=== PATIENT | male | born 1935 | race Caucasian/White ===

== ENCOUNTER 2021-10-14 21:06 | Observation (INO) ==
[2021-10-14] MEDS ORDERED: LORazepam 2 MG/1 ML VIAL IV STA (21:51)
[2021-10-14 22:53] LABS: Basophils # (auto) 0.03 K/uL (0-0.2); Basophils % (auto) 0.4 %; Eosinophils # (auto) 0.14 K/uL (0-0.5); Eosinophils % (auto) 1.6 %; Hematocrit (blood only) 34.1 % (42-52); Hemoglobin 11.3 g/dL (14.0-18.0); Immature Granulocytes # (auto) 0.02 K/uL (0.00-0.02); Immature Granulocytes % (auto) 0.2 %; Lymphocytes # (auto) 1.32 K/uL (1.2-3.4); Lymphocytes % (auto) 15.5 %; Mean Corpuscular Hemoglobin 28.4 pg (25-34); Mean Corpuscular Hgb Conc 33.1 g/dL (32-36); Mean Corpuscular Volume 85.7 fL (80-100); Monocytes # (auto) 0.73 K/uL (0.11-0.59); Monocytes % (auto) 8.6 %; Neutrophils # (auto) 6.26 K/uL (1.4-6.5); Neutrophils % (auto) 73.7 %; Platelet Count 167 K/uL (130-400); RDW Coefficient of Variation 14.9 % (11.5-14.5); RDW Standard Deviation 46.7 fL (36.4-46.3); Red Blood Count 3.98 M/uL (4.7-6.1)
--- NOTE | 2021-10-14 23:37 | Emergency Department Note ---
History of Present Illness General Chief complaint: Hypertension Stated complaint: HYPERTENSIVE, SOB, DIZZINESS Time Seen by Provider: 10/14/21 21:29 History of Present Illness This 85-year-old presents to the ER complaining of elevated blood pressure and shortness of breath today who his friend just Location: Generalized Quality: Short of breath Severity: Mild Duration: Today Timing: Today Context: Patient was concerned and came in Modifying factors: better with nothing; worse with nothing Patient recently got over pneumonia. He normally goes to the DC. Patient denies chest pain, numbness, tingling, vision problems, balance problems, localized weakness. Home Medications Medication Instructions Recorded Confirmed Type ascorbic acid (vitamin C) 500 mg 500 mg PO DAILY 10/14/21 10/15/21 History tablet (Vitamin C) atorvastatin 20 mg tablet 10 mg PO DAILY 10/14/21 10/14/21 History biotin 1 mg tablet 1 mg PO DAILY 10/14/21 10/15/21 History diclofenac sodium 1 % topical gel 0 g TOPICAL TID PRN 10/14/21 10/14/21 History furosemide 20 mg tablet (Lasix) 20 mg PO DAILY PRN 10/14/21 10/14/21 History gabapentin 100 mg capsule 100 mg PO QAM 10/14/21 10/15/21 History gabapentin 100 mg tablet 200 mg PO HS 10/14/21 10/15/21 History insulin aspart U-100 100 unit/mL 5 unit SUBCUT AC 10/14/21 10/15/21 History (3 mL) subcutaneous pen (Novolog Flexpen U-100 Insulin aspart) insulin glargine 100 unit/mL (3 20 unit SUBCUT QPM 10/14/21 10/15/21 History mL) subcutaneous pen (Lantus Solostar U-100 Insulin) lidocaine 5 % topical patch 1 patch TOPICAL DAILY 10/14/21 10/15/21 History losartan 25 mg tablet 25 mg PO BID 10/14/21 10/15/21 History lutein 6 mg tablet 0 mg PO DAILY 10/14/21 10/15/21 History methyl salicylate-menthol topical 1 ea TOPICAL DAILY 10/14/21 10/15/21 History ointment mometasone 200 mcg/actuation HFA 2 puff INHALATION DAILY 10/14/21 10/15/21 H istory aerosol inhaler multivitamin 1 tab PO DAILY 10/14/21 10/15/21 History omega-3 fatty acids 1,000 mg PO DAILY 10/14/21 10/15/21 History quetiapine 25 mg tablet 25 mg PO HS 10/14/21 10/15/21 History Allergies Allergy/AdvReac Type Severity Reaction Status Date / Time No Known Allergies Allergy Unverified 10/15/21 00:14 Past Med/Surg History Medical History Diabetes High blood pressure Surgical History Hx of CABG Social History Smoking Status: Never smoker Preferred Language: Nauruan Feels Safe at Home: Yes Review of Systems A total of 10 systems reviewed and were otherwise negative Physical Exam Vital Signs Vital Signs - 24 hr 10/14/21 21:12 10/14/21 21:32 10/14/21 21:40 Temperature 37.1 C Temperature Source Temporal Artery Scan Pulse Rate 78 56 L 70 Pulse Rate from SpO2 Sensor Respiratory Rate 18 12 17 Respiratory Effort / Characteristics Non-Labored Spontaneous Respiratory Depth Normal Respiratory Pattern Regular Blood Pressure 204/82 H 186/91 H Blood Pressure Mean 122 122 Pulse Oximetry 96 96 96 Oxygen Delivery Method Room Air Sepsis Recent Fever Within 48 Hours No Sepsis New/Unexplained Change in Mental Status No Sepsis Action Taken by Nursing No Action Required 10/14/21 22:00 10/14/21 22:30 10/14/21 22:52 Temperature Temperature Source Pulse Rate 53 L 56 L Pulse Rate from SpO2 Sensor Respiratory Rate 12 22 Respiratory Effort / Characteristics Respiratory Depth Respiratory Pattern Blood Pressure 151/75 H Blood Pressure Mean 100 Pulse Oximetry 96 95 Oxygen Delivery Method Room Air Sepsis Recent Fever Within 48 Hours Sepsis New/Unexplained Change in Mental Status Sepsis Action Taken by Nursing 10/14/21 23:00 10/14/21 23:02 10/14/21 23:30 Temperature Temperature Source Pulse Rate 53 L 81 53 L Pulse Rate from SpO2 Sensor 70 Respiratory Rate 20 15 21 Respiratory Effort / Characteristics Respiratory Depth Respiratory Pattern Blood Pressure 176/89 H Blood Pressure Mean 118 Pulse Oximetry 96 96 Oxygen Delivery Method Sepsis Recent Fever Within 48 Hours Sepsis New/Unexplained Change in Mental Status Sepsis Action Taken by Nursing 10/15/21 00:00 10/15/21 00:30 10/15/21 01:30 Temperature Temperature Source Pulse Rate 56 L 58 L 62 Pulse Rate from SpO2 Sensor 70 80 Respiratory Rate 16 18 Respiratory Effort / Characteristics Respiratory Depth Respiratory Pattern Blood Pressure 188/65 H Blood Pressure Mean 106 Pulse Oximetry 94 95 94 Oxygen Delivery Method Sepsis Recent Fever Within 48 Hours Sepsis New/Unexplained Change in Mental Status Sepsis Action Taken by Nursing 10/15/21 01:52 10/15/21 02:00 Temperature Temperature Source Pulse Rate 63 58 L Pulse Rate from SpO2 Sensor Respiratory Rate 23 19 Respiratory Effort / Characteristics Respiratory Depth Respiratory Pattern Blood Pressure 198/78 H 197/77 H Blood Pressure Mean 118 117 Pulse Oximetry 97 96 Oxygen Delivery Method Sepsis Recent Fever Within 48 Hours Sepsis New/Unexplained Change in Mental Status Sepsis Action Taken by Nursing VITALS: Vitals are noted on the nurse's note and reviewed by myself. Vital s igns hypertensive. GENERAL: Elderly male moving all extremities with nephew present, in no acute distress, nondiaphoretic, well-developed well-nourished. SKIN: The skin was without rashes, erythema, edema, or bruising. There is no tenting of the skin. Capillary reflex less than 2 seconds. HEAD: Normocephalic atraumatic. EARS: External auditory canals clear, EYES: Pupils equal round and reactive to light and accommodation. Conjunctivae without injection, sclerae without icterus. Extraocular movements intact. NOSE: Patent, turbinates without inflammation or discharge. MOUTH: Mucous membranes moist. Pharynx without erythema or exudate. Uvula midline. Airway patent. Tongue does not deviate. NECK: Supple without nuchal rigidity. No lymphadenopathy. No thyromegaly. Cervical spine is nontender. No JVD. HEART: Regular rate and rhythm LUNGS: Clear to auscultation bilaterally without wheezes, rales or rhonchi. No retractions or accessory muscle use. ABDOMEN: Positive bowel sounds x 4. Normal tympanic percussion. Soft, nontender, without masses or organomegaly. Hector sign negative. No guarding or rebound tenderness. No CVA tenderness MUSCULOSKELETAL: No muscle atrophy, erythema, or edema noted. NEURO: Patient was alert and oriented to person place and time. Normal sensation to light and sharp touch. No focal neurological deficits. Course Administered Medications Discontinued Medications Ioversol (Optiray 320 125ml) 125 ml IV ONCE ONE Stop: 10/15/21 01:17 Last Admin: 10/15/21 01:17 Dose: 98 ml Documented by: [id number] Lorazepam (Lorazepam 2 Mg/1 Ml Vial) 0.5 mg IV NOW STA Stop: 10/14/21 21:52 Last Admin: 10/14/21 23:15 Dose: Not Given Documented by: [id number] Medical Decision Making Medical Records Attestation: I reviewed the patient's medical records. Home Medications Current Medication List: was personally reviewed by me Laboratory Data Attestation: I reviewed the patient's lab results. Result diagrams: 10/14/21 22:37 10/14/21 22:37 Lab Results 10/14/21 10/14/21 10/14/21 Range/Units 22:37 22:37 22:37 WBC 8.50 (4.8-10.8) K/uL RBC 3.98 L (4.7-6.1) M/uL Hgb 11.3 L (14.0-18.0) g/dL Hct 34.1 L (42-52) % MCV 85.7 (80-100) fL MCH 28.4 (25-34) pg MCHC 33.1 (32-36) g/dL RDW Std Deviation 46.7 H (36.4-46.3) fL RDW Coeff of Greer 14.9 H (11.5-14.5) % Plt Count 167 (130-400) K/uL MPV 12.0 H (7.4-10.4) fL Immature Gran % (Auto) 0.2 % Neut % (Auto) 73.7 % Lymph % (Auto) 15.5 % Glenn % (Auto) 8.6 % Eos % (Auto) 1.6 % Baso % (Auto) 0.4 % Neut # (Auto) 6.26 (1.4-6.5) K/uL Lymph # (Auto) 1.32 (1.2-3.4) K/uL Glenn # (Auto) 0.73 H (0.11-0.59) K/uL Eos # (Auto) 0.14 (0-0.5) K/uL Baso # (Auto) 0.03 (0-0.2) K/uL Immature Gran # (Auto) 0.02 (0.00-0.02) K/uL Sodium 139 (136-145) mmol/L Potassium 3.9 (3.5-5.1) mmol/L Chloride 105 (98-107) mmol/L Carbon Dioxide 25 (21-32) mmol/L Anion Gap 9 (3-11) BUN 28 H (6-23) mg/dl Creatinine 1.14 (0.6-1.4) mg/dl Est Cr Clr Drug Dosing 54.3 ml/min Est GFR ( Amer) 66.6 ml/min Est GFR (Non-Af Amer) 57.5 ml/min BUN/Creatinine Ratio 24.6 H (10-20) Glucose 78 (70-99(Fasting)) mg/dl Calcium 8.9 (8.5-10.1) mg/dl Magnesium 2.2 (1.7-2.4) mg/dl Total Bilirubin 0.7 (0.2-1.0) mg/dl AST 15 (13-39) U/L ALT 9 (7-52) U/L Alkaline Phosphatase 71 (34-104) U/L Troponin I High Sens 33.6 H (0-20) pg/ml Total Protein 6.9 (6.0-8.3) gm/dl Albumin 3.9 (3.4-5.0) gm/dl Globulin 3.0 (2.5-4.0) gm/dl Albumin/Globulin Ratio 1.3 (0.9-2) Lipase 50 (11-82) U/L TSH 1.822 (0.300-4.500) uIu/ml 10/14/21 10/15/21 Range/Units 22:37 00:31 WBC (4.8-10.8) K/uL RBC (4.7-6.1) M/uL Hgb (14.0-18.0) g/dL Hct (42-52) % MCV (80-100) fL MCH (25-34) pg MCHC (32-36) g/dL RDW Std Deviation (36.4-46.3) fL RDW Coeff of Greer (11.5-14.5) % Plt Count (130-400) K/uL MPV (7.4-10.4) fL Immature Gran % (Auto) % Neut % (Auto) % Lymph % (Auto) % Glenn % (Auto) % Eos % (Auto) % Baso % (Auto) % Neut # (Auto) (1.4-6.5) K/uL Lymph # (Auto) (1.2-3.4) K/uL Glenn # (Auto) (0.11-0.59) K/uL Eos # (Auto) (0-0.5) K/uL Baso # (Auto) (0-0.2) K/uL Immature Gran # (Auto) (0.00-0.02) K/uL Sodium (136-145) mmol/L Potassium (3.5-5.1) mmol/L Chloride (98-107) mmol/L Carbon Dioxide (21-32) mmol/L Anion Gap (3-11) BUN (6-23) mg/dl Creatinine (0.6-1.4) mg/dl Est Cr Clr Drug Dosing ml/min Est GFR ( Amer) ml/min Est GFR (Non-Af Amer) ml/min BUN/Creatinine Ratio (10-20) Glucose (70-99(Fasting)) mg/dl Calcium (8.5-10.1) mg/dl Magnesium (1.7-2.4) mg/dl Total Bilirubin (0.2-1.0) mg/dl AST (13-39) U/L ALT (7-52) U/L Alkaline Phosphatase (34-104) U/L Troponin I High Sens 36.8 H 40.0 H (0-20) pg/ml Total Protein (6.0-8.3) gm/dl Albumin (3.4-5.0) gm/dl Globulin (2.5-4.0) gm/dl Albumin/Globulin Ratio (0.9-2) Lipase (11-82) U/L TSH (0.300-4.500) uIu/ml Imaging Data Attestation: I personally reviewed and interpreted this imaging study as follows: MDM Narrative Prior records/ancillary studies reviewed regarding the history above. Triage Nursing notes reviewed. Additional history obtained from the family. The patient's history was concerning for hypertension. Differential diagnosis: Etiologies such as benign hypertension, hypertensive emergency, cardiovascular pathology, pheochromocytoma, electrolyte abnormality, renal disease, endorgan damage, as well as others were entertained. Physical examination: As above. No signs of end organ damage. ER treatment provided: An order was placed for continuous cardiac monitoring. The monitor shows a rate of 50-100 with a sinus rhythm. Ativan On reassessment the patient felt better. Diagnostic interpretation by me: The electrocardiogram was ordered for dyspnea EKG: Normal sinus, normal intervals, no acute ST-T wave changes. Rate of 66. I mpression normal sinus rhythm septal infarct interpreted by myself I think arrhythmia is unlikely. EKG shows normal sinus rhythm with no interval abnormalities such as QT prolongation or WPW. There are no findings to suggest Brugada syndrome. Cardiac monitoring in the emergency department reveals no tachycardic or bradycardic dysrhythmia. Hypertrophic cardiomyopathy was considered but there are no clear historical elements pointing toward this. EKG is not suggestive. The QRS voltage is not extremely large and there are no suggestive Q waves. The labs revealed elevated troponin and repeat is higher Imaging studies: Preliminary Findings Only See Final Report For Complete Findings CTA CHEST: No prior exam for comparison. No pulmonary embolus or aortic dissection. Atherosclerotic disease of aorta with no aneurysm. Normal cardiac size with coronary artery calcifications. Midline sternotomy wires. Mild bilateral pleural effusions. Multifocal subpleural interstitial thickening with minimal cystic changes more so in the lung apices suggestive of chronic interstitial lung disease versus early/mild pulmonary fibrosis. Mild fullness of the lymph nodes within the mediastinum, largest at the aortopulmonary window measuring 1.6 x 1.5 cm and largest in the right paratracheal region measuring 2.0 x 1.5 cm. Left lower lobe subpleural pulmonary nodule measuring approximately 1.6 cm. This has a small punctate calcification which favors benign process however calcific metastatic disease cannot be entirely excluded. Mild posterior dependent atelectasis. Visualized upper abdominal structures are unremarkable. Radiologist: Denise Chaidez MD HEART SCORE: Hx: high/mod/low suspicion: 0 ECG: ST depression/nonspecific changes/normal: 1 Age: Greater than 65/45-64/less than 45: 2 Risk factors: (Hypertension, hyperlipidemia, diabetes, coronary disease, tobacco use, cocaine use): 2 Troponin: Greater than 2 times normal limits/1-2 times normal limits/normal: 1 Total: 6 Consultation: A consultation was placed with the hospitalist. The case was discussed and diagnostics were reviewed. The patient was evaluated in the ER for further treatment. This appears to be consistent with dyspnea, elevated troponin and hypertension. CTA was reviewed. No PE. Repeat troponin is higher. Medicine is consulted. He will be evaluated for cardiac rule out. By the evaluation outlined above emergent etiologies such as hypertensive emergency, pheochromocytoma, endorgan damage, aortic dissection, pulmonary embolism, pneumonia, pneumothorax, infections, gastrointestinal, as well as others were deemed relatively unlikely. The pt informed about the findings as listed above. All questions were answered and pleased with the treatment. The chart was completed utilizing [employer] Speech voice recognition software. Grammatical errors, random word insertions, pronoun errors, and incomplete sentences are an occassional consequence of this system due to software limitations, ambient noise, and hardware issues. Any formal questions or concerns about the content, text, or information contained within the body of this dictation should be directly addressed to the physician student assistant for clarification. Impression & Plan Hypertension, Elevated troponin, Acute dyspnea Discharge Plan Visit Data Chief Complaint: Hypertension Stated Complaint: HYPERTENSIVE, SOB, DIZZINESS ED Provider: Lukas Doe ED Midlevel Provider: Ame Alicia Discharge Problem: Hypertension, Elevated troponin, Acute dyspnea Patient Disposition: Admitted As Inpatient Condition: Good Forms Stand Alone Forms: [facility] Prescriptions Prescriptions: No Action multivitamin Tablet 1 tab PO DAILY RF: 0 quetiapine 25 mg Tablet 25 mg PO HS RF: 0 atorvastatin 20 mg Tablet 10 mg PO DAILY RF: 0 ascorbic acid (vitamin C) [Vitamin C] 500 mg Tablet 500 mg PO DAILY RF: 0 lidocaine 5 % Adhesive Patch,Medicated 1 patch TOPICAL DAILY RF: 0 losartan 25 mg Tablet 25 mg PO BID RF: 0 furosemide [Lasix] 20 mg Tablet 20 mg PO DAILY PRN (Reason: Edema) RF: 0 gabapentin 100 mg Capsule 100 mg PO QAM RF: 0 BenGay Ointment 1 ea TOPICAL DAILY RF: 0 insulin aspart U-100 [Novolog Flexpen U-100 Insulin] 100 unit/mL (3 mL) Insulin Pen 5 unit SUBCUT AC RF: 0 Fish Oil Capsule 1,000 mg PO DAILY RF: 0 gabapentin 100 mg Tablet 200 mg PO HS RF: 0 biotin 1 mg Tablet 1 mg PO DAILY RF: 0 Lantus Solostar U-100 Insulin 100 unit/mL (3 mL) Insulin Pen 20 unit SUBCUT QPM RF: 0 diclofenac sodium [Voltaren] 1 % Gel 0 g TOPICAL TID PRN (Reason: Pain) RF: 0 lutein 6 mg Tablet 0 mg PO DAILY RF: 0 mometasone 200 mcg/actuation Hfa Aerosol Inhaler 2 puff INHALATION DAILY RF: 0 Referrals Referrals: PCP,NO [Primary Care Provider] - Discharge Problem: Hypertension Qualifiers: Hypertension type: unspecified Qualified Code(s): I10 - Essential (primary) hypertension
[2021-10-14 23:47] LABS: Albumin Globulin Ratio 1.3 (0.9-2); Albumin Level 3.9 gm/dl (3.4-5.0); BUN Creatinine Ratio 24.6 (10-20); Bilirubin,Total 0.7 mg/dl (0.2-1.0); Calcium 8.9 mg/dl (8.5-10.1); Creatinine Clr Calc Pharmacy 54.3 ml/min; Est GFR (African American) 66.6 ml/min; Est GFR (Non-African American) 57.5 ml/min; Magnesium 2.2 mg/dl (1.7-2.4); Potassium 3.9 mmol/L (3.5-5.1); Total Protein 6.9 gm/dl (6.0-8.3)
[2021-10-15 00:18] LABS: Troponin I High Sensitivity 33.6 pg/ml (0-20)
[2021-10-15] MEDS ORDERED: OPTIRAY 320 125ml IV ONE (01:16)
--- NOTE | 2021-10-15 01:56 | Emergency Department Note ---
ED Visit Note Patient was seen and evaluated at the bedside w/ Thu Alicia PA-C. Please see their note for history, physical, details, and disposition. Patient was seen due to concern for high blood pressure. Patient did have mildly elevated high-sensitivity troponin. Patient does not have any acute chest pain at this time. Patient was admitted to the medicine service. .
--- NOTE | 2021-10-15 02:50 | History & Physical Report ---
Date of Service October 15, 2021 Assessment & Plan (1) Elevated troponin: Plan: Elevated troponin/CAD/hypertension- The patient will be admitted to telemetry for serial cardiac enzymes, serial EKG's, cardiac rhythm monitoring and a 2-D echocardiogram with Dopplers. Troponin increasing from 36.8 up to 40.0 Continue losartan 25 mg p.o. twice daily Heart rate is 58-low 60s, therefore would not tolerate beta-mona Hydralazine 10 mg IV every 4 hours as needed systolic blood pressure greater than 160 (2) CAD (coronary artery disease), [place] coronary artery: Plan: See above (3) Hypertension: Plan: See above (4) History of recent pneumonia: Plan: Completed antibiotic course of treatment from [facility] (5) Pleural effusion, bilateral: Plan: Bilateral pleural effusions/lower extremity edema- He has history of intermittently taking Lasix 20 mg daily as needed We will place him on 40 mg Lasix orally daily and follow examination (6) Lower extremity edema: Plan: See above (7) Diabetes: Plan: Reduce Lantus from 20 to 10 units subcu in the evening. Hold 5 units subcu of NovoLog AC Place on Accu-Cheks before meals and at bedtime with NovoLog coverage per scale Check hemoglobin A1c (8) Pulmonary nodules/lesions, multiple: Plan: Follow-up in outpatient setting per protocol (9) COPD (chronic obstructive pulmonary disease): Plan: COPD/acute dyspnea- Patient reports having used nebulizers while in [place] At least part of this is likely post inflammatory with due to recent pneumonia Duonebs every 4 hours while awake and every 2 hours when necessary. (10) Acute dyspnea: Plan: See above (11) Hyperlipidemia LDL goal <70: Plan: Continue atorvastatin 10 mg daily Check a fasting lipid panel (12) Insomnia: Plan: Continue Seroquel 25 mg at bedtime History of Present Illness Chief Complaint: The patient presents to the emergency department with shortness of breath, chronic increased productive cough, and elevated blood pressure after hearing that a friend of his just . Primary Care Provider: NO PCP The patient is a an 85-year-old male with a past medical history including hypertension, CAD, status post CABG x3, anxiety, and diabetes mellitus. He had previously been from [place], and moved to the area 1 month ago to be with his nephew locally. He was treated for a recent pneumonia at [facility], and was told at his follow-up week ago that his chest x-ray was clear, however, he continues to have an intermittent productive cough. He reports hearing that his friend is a dive today, and he reports his blood pressure became elevated, and with the presence of shortness of breath associated with the cough, he presents to the ED for assessment. Significant laboratories: Troponin 36.8 the increased 40.0, hemoglobin 11.3, hematocrit 34.1. CT angiography of chest is negative for PE, but does show mild bilateral pleural effusions, lymphadenopathy and pulmonary nodules. Allergies Allergy/AdvReac Type Severity Reaction Status Date / Time No Known Allergies Allergy Unverified 10/15/21 00:14 Home Medications Medication Instructions Recorded Confirmed Type ascorbic acid (vitamin C) 500 mg 500 mg PO DAILY 10/14/21 10/15/21 History tablet (Vitamin C) atorvastatin 20 mg tablet 10 mg PO DAILY 10/14/21 10/14/21 History biotin 1 mg tablet 1 mg PO DAILY 10/14/21 10/15/21 History diclofenac sodium 1 % topical gel 0 g TOPICAL TID PRN 10/14/21 10/14/21 History furosemide 20 mg tablet (Lasix) 20 mg PO DAILY PRN 10/14/21 10/14/21 History gabapentin 100 mg capsule 100 mg PO QAM 10/14/21 10/15/21 History gabapentin 100 mg tablet 200 mg PO HS 10/14/21 10/15/21 History insulin aspart U-100 100 unit/mL 5 unit SUBCUT AC 10/14/21 10/15/21 History (3 mL) subcutaneous pen (Novolog Flexpen U-100 Insulin aspart) insulin glargine 100 unit/mL (3 20 unit SUBCUT QPM 10/14/21 10/15/21 History mL) subcutaneous pen (Lantus Solostar U-100 Insulin) lidocaine 5 % topical patch 1 patch TOPICAL DAILY 10/14/21 10/15/21 History losartan 25 mg tablet 25 mg PO BID 10/14/21 10/15/21 History lutein 6 mg tablet 0 mg PO DAILY 10/14/21 10/15/21 History methyl salicylate-menthol topical 1 ea TOPICAL DAILY 10/14/21 10/15/21 History ointment mometasone 200 mcg/actuation HFA 2 puff INHALATION DAILY 10/14/21 10/15/21 History aerosol inhaler multivitamin 1 tab PO DAILY 10/14/21 10/15/21 History omega-3 fatty acids 1,000 mg PO DAILY 10/14/21 10/15/21 History quetiapine 25 mg tablet 25 mg PO HS 10/14/21 10/15/21 History Past Med/Surg History Medical History (Updated 10/15/21 @ 04:36 by Moe Warner MD) CAD (coronary artery disease), [place] coronary artery COPD (chronic obstructive pulmonary disease) Diabetes High blood pressure History of recent pneumonia Hyperlipidemia LDL goal <70 Insomnia Lower extremity edema Surgical History Hx of CABG Social History Smoking Status: Never smoker Preferred Language: Sinhala Feels Safe at Home: Yes Review of Systems Review of Systems: The patient denies chest pain, palpitations, lower extremity swelling, sore throat, fevers, chills, sweats, nausea, vomiting, diarrhea , constipation, abdominal pain, pelvic pain, blood in urine or stool, dysuria, urinary frequency or urgency, lightheadedness, dizziness, headache, memory loss, loss of consciousness, rash, abnormal bruising or bleeding, imbalance, focal or generalized weakness, numbness or tingling in arms or legs, generalized arthralgias or myalgias, back or neck pain, or night sweats. The review of systems is otherwise negative other than for that already noted above, and at least 10 systems have been reviewed. Physical Exam Physical Exam: The patient is awake, alert and oriented 3, well developed and well nourished, normocephalic and atraumatic, sitting upright in bed, with intermittent cough, and otherwise in no acute distress. HEENT--PERRL, EOMI, mucous membranes and oropharynx normal. Neck--supple. No JVD. No bruits. Thyroid normal, trachea midline, no adenopathy. Heart--normal S1 and S2. No murmurs, rubs or gallops. Lungs--diffuse wheezes bilaterally. No respiratory distress, no accessory muscle use. Abdomen--normal bowel sounds and soft. Nontender. Nondistended. Obese. Extremities--no cyanosis or clubbing. Right with 1+ pretibial pitting edema. Left with trace pretibial pitting edema Dermatologic--normal skin turgor, normal color, no abnormal lymph nodes, no rash. Neurologic--cranial nerves II through XII grossly intact. Rheumatologic--normal range of motion. Psychiatric--normal affect. Results & Data Results & Data ([facility]) Vital Signs (Past 12 Hours) Vital Signs Temp Pulse Resp BP Pulse Ox 10/15/21 02:00 58 L 19 197/77 H 96 10/15/21 01:52 63 23 198/78 H 97 10/15/21 01:30 62 94 10/15/21 00:30 58 L 18 95 10/15/21 00:00 56 L 16 188/65 H 94 10/14/21 23:30 53 L 21 96 10/14/21 23:02 81 15 176/89 H 10/14/21 23:00 53 L 20 96 10/14/21 22:30 56 L 22 95 10/14/21 22:00 53 L 12 151/75 H 96 10/14/21 21:40 70 17 186/91 H 96 10/14/21 21:32 56 L 12 96 10/14/21 21:12 37.1 C 78 18 204/82 H 96 Laboratory Results Laboratory Results WBC 8.50 K/uL (4.8-10.8) 10/14/21 22:37 RBC 3.98 M/uL (4.7-6.1) L 10/14/21 22:37 Hgb 11.3 g/dL (14.0-18.0) L 10/14/21 22:37 Hct 34.1 % (42-52) L 10/14/21 22:37 MCV 85.7 fL (80-100) 10/14/21 22:37 MCH 28.4 pg (25-34) 10/14/21 22:37 MCHC 33.1 g/dL (32-36) 10/14/21 22:37 RDW Std Deviation 46.7 fL (36.4-46.3) H 10/14/21 22:37 RDW Coeff of Greer 14.9 % (11.5-14.5) H 10/14/21 22:37 Plt Count 167 K/uL (130-400) 10/14/21 22:37 MPV 12.0 fL (7.4-10.4) H 10/14/21 22:37 Immature Gran % (Auto) 0.2 % 10/14/21 22:37 Neut % (Auto) 73.7 % 10/14/21 22:37 Lymph % (Auto) 15.5 % 10/14/21 22:37 [place] % (Auto) 8.6 % 10/14/21 22:37 Eos % (Auto) 1.6 % 10/14/21:37 Baso % (Auto) 0.4 % 10/14/21:37 Neut # (Auto) 6.26 K/uL (1.4-6.5) 10/14/21: Lymph # (Auto) 1.32 K/uL (1.2-3.4) 10/14/21 22:37 [place] # (Auto) 0.73 K/uL (0.11-0.59) H 10/14/21 22:37 Eos # (Auto) 0.14 K/uL (0-0.5) 10/14/21 22:37 Baso # (Auto) 0.03 K/uL (0-0.2) 10/14/21 22:37 Immature Gran # (Auto) 0.02 K/uL (0.00-0.02) 10/14/21 22:37 Sodium 139 mmol/L (136-145) 10/14/21 22:37 Potassium 3.9 mmol/L (3.5-5.1) 10/14/21 22:37 Chloride 105 mmol/L (98-107) 10/14/21 22:37 Carbon Dioxide 25 mmol/L (21-32) 10/14/21 22:37 Anion Gap 9 (3-11) 10/14/21 22:37 BUN 28 mg/dl (6-23) H 10/14/21 22:37 Creatinine 1.14 mg/dl (0.6-1.4) 10/14/21 22:37 Est Cr Clr Drug Dosing 54.3 ml/min 10/14/21 22:37 Est GFR ( Amer) 66.6 ml/min 10/14/21 22:37 Est GFR (Non-Af Amer) 57.5 ml/min 10/14/21 22:37 BUN/Creatinine Ratio 24.6 (10-20) H 10/14/21 22:37 Glucose 78 mg/dl (70-99(Fasting)) 10/14/21 22:37 Calcium 8.9 mg/dl (8.5-10.1) 10/14/21 22:37 Magnesium 2.2 mg/dl (1.7-2.4) 10/14/21 22:37 Total Bilirubin 0.7 mg/dl (0.2-1.0) 10/14/21 22:37 AST 15 U/L (13-39) 10/14/21 22:37 ALT 9 U/L (7-52) 10/14/21 22:37 Alkaline Phosphatase 71 U/L (34-104) 10/14/21 22:37 Troponin I High Sens 40.0 pg/ml (0-20) H 10/15/21 00:31 Total Protein 6.9 gm/dl (6.0-8.3) 10/14/21 22:37 Albumin 3.9 gm/dl (3.4-5.0) 10/14/21 22:37 Globulin 3.0 gm/dl (2.5-4.0) 10/14/21 22:37 Albumin/Globulin Ratio 1.3 (0.9-2) 10/14/21 22:37 Lipase 50 U/L (11-82) 10/14/21 22:37 TSH 1.822 uIu/ml (0.300-4.500) 10/14/21 22:37 SARS-CoV-2, RNA, NAAT NEGATIVE (NEGATIVE) 10/15/21 Unknown Diagnostic Findings [facility] Patient: MEL ROGER (Male) : [birth year] Status: ER Date: 10/15/21 01:23 Room #: History: HYPERTENSION, NO CHEST PAIN R/O PE Slices: 750 Priors: Tech: Stewart Pennington @ [phone] Exams: CTA CHEST Contrast: IV Amt: 98 ML OPTIRAY 320 Accession Numbers: [id number] Referring Physician: REFERRED SELF Preliminary Findings Only See Final Report For Complete Findings CTA CHEST: No prior exam for comparison. No pulmonary embolus or aortic dissection. Atherosclerotic disease of aorta with no aneurysm. Normal cardiac size with coronary artery calcifications. Midline sternotomy wires. Mild bilateral pleural effusions. Multifocal subpleural interstitial thickening with minimal cystic changes more so in the lung apices suggestive of chronic interstitial lung disease versus early/mild pulmonary fibrosis. Mild fullness of the lymph nodes within the mediastinum, largest at the aortopulmonary window measuring 1.6 x 1.5 cm and largest in the right paratracheal region measuring 2.0 x 1.5 cm. Left lower lobe subpleural pulmonary nodule measuring approximately 1.6 cm. This has a small punctate calcification which favors benign process however calcific metastatic disease cannot be entirely excluded. Mild posterior dependent atelectasis. Visualized upper abdominal structures are unremarkable. Radiologist: Denise Chaidez MD Study ready at 01:27 and initial results transmitted at 02:16 *This report constitutes a preliminary interpretation only. Non-acute findings felt to be unrelated to the clinical presentation may not be discussed in this report. The study will be interpreted and a final report will be generated by the local Radiologist the following shift. To reach the [facility] radiology department call [phone]. If a discrepancy is found between the preliminary and final interpretations of this study, please notify us via our Client Portal at [email or web address], under QA Exams. You can also fax this report with a description of the discrepancy, or include the final report, to our daytime fax number [phone]. If faxing, please indicate the severity of discrepancy using one of the following categories: [ ] 1 - Agree/Informational [ ] 2 - Unlikely to Affect Management [ ] 3 - Possible Eventual Change of Management [ ] 4 - Probable Immediate Change of Management For all other patient related information, please fax us at [phone]. [id number] Code Status & VTE Plan Code Status Full code VTE Prophylaxis Plan VTE Prophylaxis will be ordered: Yes PG Care Time/CCT Total # of Minutes Spent Total Time Spent with Patient: Total time spent is greater than 50% in coordination of care (as documented) at patient's floor/unit and/or counseling patient: Coding Level of Care Code INT OBSERVATION CARE 70M LVL 3 Diagnoses Pulmonary nodules/lesions, multiple R91.8 Hypertension I10 Hypertension type: unspecified CAD (coronary artery disease), [place] coronary artery I25.10 History of recent pneumonia Z87.01 Elevated troponin R77.8 Pleural effusion, bilateral J90 Hyperlipidemia LDL goal <70 E78.5 Diabetes E11.9 Insomnia G47.00 Lower extremity edema R60.0 COPD (chronic obstructive pulmonary disease) J44.9 Acute dyspnea R06.00 (1) Hypertension Hypertension type: unspecified Qualified Code(s): I10 - Essential (primary) hypertension
[2021-10-15] MEDS ORDERED: hydrALAZINE HCL 20 MG/ML VIAL IV PRN (04:35)
[2021-10-15] MEDS ORDERED: ACETAMINOPHEN 325 MG TAB PO PRN (05:15)
[2021-10-15] MEDS ORDERED: GLUCOSE 10 TABS/TUBE PO PRN (05:15)
[2021-10-15] MEDS ORDERED: GLUCAGON FOR INJ 1 MG VIAL SQ PRN (05:15)
[2021-10-15] MEDS ORDERED: DEXTROSE 50% 50 ML SYRINGE IV PRN (05:15)
[2021-10-15] MEDS ORDERED: NITROGLYCERIN SL 0.4 MG/TAB TAB SL PRN (05:15)
[2021-10-15] MEDS ORDERED: GLUCOSE 40% GEL 15 GM TUBE PO PRN (05:15)
[2021-10-15] MEDS ORDERED: ONDANSETRON INJ 2 MG/ML 2 ML VIAL IV PRN (05:15)
[2021-10-15] MEDS ORDERED: CARBOHYDRATES FOR HYPOGLYCEMIA PO PRN (05:15)
[2021-10-15] MEDS ORDERED: amLODIPine BESYLATE 5 MG TAB PO ONE (07:00)
[2021-10-15] MEDS: ALBUT/IPRATROP 3MG/0.5MG NEB 3 ML VIAL NEB SCH ×3 (07:49→15:04)
[2021-10-15] MEDS: INSULIN ASPART PER UNIT SC SCH ×2 (08:13→12:05)
--- NOTE | 2021-10-15 08:38 | CT Scan Report ---
CT angio chest PE protocol CT DOSE: 743.16 mGy.cm HISTORY: 85 years-old Male with Chest Pain, eval for PE. Acute atypical chest pain with shortness o f breath and hypertension TECHNIQUE: Multiple CTA images of the chest were obtained after the intravenous administration of 98 ml Optiray. Coronal and sagittal MIPS were obtained from the axial data set and were submitted for [facility]. All measurements were obtained according to NASCET criteria. A dose lowering technique was ut ilized adhering to the principles of ALARA. COMPARISON: None. FINDINGS: CTA: Mild cardiomegaly. No pericardial effusion. Prior median sternotomy. Extensive [place] coronary artery calcifications. Atherosclerosis of the thoracic aorta without aneurysm or dissection. Patency of the imaged great vessels. The segmental and subsegmental pulmonary arterial branches within the lung bas es are not well opacified and therefore difficult to evaluate. No pulmonary emboli are identified. CT CHEST: Multiple thyroid. Mildly enlarged mediastinal lymph nodes include paratracheal lymph nodes measuring up to 1.4 cm and subcarinal lymph nodes also measuring up to 1.4 cm. Hilar lymph nodes measure within the upper limits of normal in size. Small pleural effusions. No pneumothorax. Mild intralobular septal and bronchial wall thickening. Sub segmental bibasilar groundglass densities, right greater than left. Mild pulmonary emphysema. 4 mm horton bpleural solid nodule of the lateral segment right middle lobe. There is a lobular 1.7 x 1.5 cm solid nodule of the basal left lower lobe on image 41 containing macroscopic fat and a coarse calcificatio n. No acute process of the imaged upper abdomen. Gynecomastia. Degenerative changes of the shoulders and spine. Lower thoracic kyphoplasty. Bridging multilevel osteophytosis. IMPRESSION: 1. Cardiomegaly with mild pulmonary edema and small pleural effusions. 2. No pulmonary emboli. 3. Mild asymmetric patchy opacities of the basal right lower lobe are suspicious for an infectious or inflammatory pneumonitis. 4. 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 5. 4 mm low suspicion subpleural solid nodule of the right middle lobe. Please refer to below summary of Fleischner criteria recommendations for follow-up of incidental CT n odules (Tracie Shanks, Guidelines for management of small pulmonary nodules detected on CT scans: A sta tement from the Fleischner Society, Radiology 237: [phone].) SOLID NODULES Solitary nodule size: <6 mm * Low risk patients: no follow-up needed * high risk patients: optional CT at 12 months Solitary nodule size: 6-8 mm * Low risk patients: follow-up at 6-12 months, then consider further follow-up at 18-24 months * high risk patients: initial follow-up CT at 6-12 months and then at 18-24 months if no change Solitary nodule size: >8 mm * either low or high risk patients - consider follow-up CT at 3 months, and/or CT-PET, and/or biopsy Multiple nodules size: <6 mm * Low risk patients: no routine follow-up * high risk patients: optional CT at 12 months Multiple nodules size: 6-8 mm * Low risk patients: follow-up at 3-6 months, then consider further follow-up at 18-24 months * high risk patients: follow-up at 3-6 months, then at 18-24 months if no change Multiple nodules size: >8 mm * Low risk patients: follow-up at 3-6 months, then consider further follow-up at 18-24 months * high risk patients: follow-up at 3-6 months, then at 18-24 months if no change Note: newly detected indeterminate nodule in persons 35 years of age or older. * Low risk patients: minimal or absent history of smoking and/or other known risk factors * high risk patients: history of smoking or of other known risk factors (e.g. first degree relative with lung cancer, or exposure to asbestos, radon, uranium) * if a nodule up to 8 mm is partly solid or is ground glass further follow-up is required after 24 m onths to exclude possible slow growing adenocarcinoma (KAREN) ACT 112: Negative or not required by law. The above report was generated using voice recognition software. It may contain grammatical, syntax o r spelling errors. Electronically signed by: Shilo Sanchez M.D. 10/15/2021 8:36 AM
[2021-10-15] MEDS ORDERED: ASCORBIC ACID 500 MG TAB PO SCH (09:00)
[2021-10-15] MEDS ORDERED: OMEGA-3 (PURIFIED FISH OIL) 1 GM CAP PO SCH (09:00)
[2021-10-15] MEDS ORDERED: MULTIVITAMIN TAB PO SCH (09:00)
[2021-10-15] MEDS ORDERED: NON-FORMULARY MEDICATION (Biotin 1 mg Tablet) PO SCH (09:00)
[2021-10-15] MEDS ORDERED: ATORVASTATIN 10 MG TAB PO SCH (09:00)
[2021-10-15] MEDS ORDERED: FLUTICASONE FUROATE 200MCG 14 PUFFS/INHALER INH SCH (09:00)
[2021-10-15] MEDS ORDERED: FUROSEMIDE 40 MG TAB PO SCH (09:00)
[2021-10-15] MEDS ORDERED: GABAPENTIN 100 MG CAP PO SCH ×2 (09:00→21:00)
[2021-10-15] MEDS ORDERED: LOSARTAN POTASSIUM 25 MG TAB PO SCH (09:00)
--- NOTE | 2021-10-15 09:19 | Cardiology Consultation ---
Date of Consultation October 15, 2021 Assessment & Plan (1) CAD (coronary artery disease), [place] coronary artery: (2) Hypertension: (3) Hyperlipidemia LDL goal <70: (4) Abnormal ECG: ASSESSMENT/PLAN: 1. Elevated troponin: His high sensitivity troponin is mildly elevated without significant change. No acute ischemic changes on ECG. Presentation does not appear consistent with an ACS. 2. Shortness of breath: Likely multifactorial. He does have underlying lung disease and was recently diagnosed with pneumonia. He does not appear significantly hypervolemic on exam but chest CT did show mild pulmonary edema and small pleural effusions. PO diuretic therapy has already been increased by the admitting attending. His presentation is not consistent with an ACS, as noted above. ECG and telemetry monitoring have shown what appears to be a prolonged first degree AV block with a Wenckebach vs an accelerated junctional rhythm. Recommend having patient ambulate the hallways to ensure his heart rate increases appropriately. 3. Abnormal ECG: Recommend patient ambulate the hallways while monitoring on telemetry. If his rate does not increase appropriately, he could have more significant underlying conduction disease requiring a pacemaker. Avoid AV chio blocking agents. 4. Coronary artery disease s/p CABG and PCI: No angina. Recommend aspirin 81 mg daily if there are no contraindications. Recommend high intensity statin therapy. No beta mona therapy given evidence of conduction system disease. 5. Hypertension: BP has remained elevated while hospitalized. Recommend increasing antihypertensive therapy. 6. Dyslipidemia: Recommend high intensity statin therapy given his known CAD. Supervising Physician Co-Signing Physician Notes Agree with Ms. Sonja Collins with additional comments: Patient was seen and examined. He has chronic shortness of breath including orthopnea for years. He has been using a nebulizer which improved his shortness of breath but his CT chewed on the tubing and therefore since he moved here several months ago, he has been unable to use his nebulizer. Here, he has been treated with nebulizer treatments and states that he feels much better with each treatment. He no longer is feeling short of breath. He denies chest pain, syncope, near-syncope. He has chronic right lower extremity edema for which he takes diuretic with improvement. He has not noted swelling in his left lower extremity. He was a [employer] Exam notable for: General: No acute distress Neck: No appreciable JVD Cardiac: Regular. No murmur. No rubs or gallops. Lungs: Decreased breath sounds but otherwise clear to auscultation bilaterally. Extremities: Trace to 1+ right lower extremity edema. Varicose veins of the right lower extremity. No left lower extremity edema. Telemetry personally reviewed: Possible junctional. Occasional wide complex rhythm, likely idioventricular rhythm with heart rates 60s to 70s. One 4 beat run of ventricular tachycardia. ECGs personally reviewed: ECG 10/15/2021 at 6:16 a.m.: Possible accelerated junctional rhythm. ECG 10/14/2021 at 9:37 p.m.: Junctional rhythm versus sinus with Mobitz 1 and very prolonged RI interval. ASSESSMENT/PLAN: 1. Elevated troponin: His very minor high sensitivity troponin elevation is not diagnostic of myocardial infarction. High sensitivity troponin trend was not significant. Ischemic evaluation not necessary at this time. 2. Shortness of breath: Chronic issue. He has underlying pulmonary issues with recent pneumonia. On exam, he appears euvolemic, however echo may suggest elevated left atrial pressure. Diuretic has been adjusted by hospitalist service. Low-sodium diet. Monitor renal function and electrolytes with increased diuretic. Ultimately, he has noted most improvement in his breathing with nebulizer treatment, which he has not been able to use for months due to equipment issues. 3. CAD s/p CABG (>20 yr ago) and then PCI: No angina. Recommend aspirin 81 mg daily, which he chronically takes at home. With electrical issues, would hold off on beta-mona for now. High-intensity statin therapy. 4. Hypertension: Blood pressure has been elevated but severely elevated ini tially, which could account for elevated troponins. Blood pressure may further improve with additional diuretic. Continue ARB. Consider titration of ARB to optimize blood pressure control. 5. Dyslipidemia: High-intensity statin therapy. 6. Disposition: Recommend outpatient monitor for his asymptomatic electrical issues noted on telemetry. Cardiology office will arrange this. Follow-up in the cardiology office in approximately 1 month, after event monitor has been completed. He is agreeable to follow-up in the cardiology office. Cardiology office is arranging appointment for him. History of Present Illness Reason for Consultation: "NSTEMI" Requesting Physician: Dr. Warner Attending Physician: Dr. Montes De Oca History of Present Illness Mr. Cabrera is an 85-year-old male with a past medical history significant for coronary artery disease s/p CABG and PCI, hypertension, dyslipidemia, diabetes, prior back surgery, and asthma/COPD who presented to the ER last evening due to complaints of shortness of breath. The patient states that he was diagnosed with pneumonia a few weeks ago and completed a course of antibiotic therapy. He had a productive cough and some shortness of breath with the pneumonia. His cough has continued but is now a dry cough. He has continued to feel short of breath and he feels as though he cannot take a full deep breath. The shortness of breath appears to occur at rest or with exertion. He also states that he breathes better sitting up compared to lying down. Yesterday, he received the news that his friend . He was then sitting at the dinner table and noted mild shortness of breath. He therefore decided to proceed to the ER for further evaluation. According to records, he was also concerned about elevated blood pressure, however, he did not mention this during the conversation today. He denies any symptoms of chest pain or other anginal type symptoms. He notes chronic right lower extremity edema for which he takes low dose Lasix daily. He denies palpitations. He notes occasional lightheadedness with standing. He denies syncope or near-syncope. He states that he had a recent fecal occult blood test through the [facility] that was positive but he is not sure if he has had any melena or hematochezia. Family history: Noncontributory given his advanced age and own disease. Social history: He is a . He grew up in [place], [place]. He lived in [place] for several years with his and worked at [employer]. He moved to this area in the Fall of 2020 to live with his niece and her . No tobacco use. No current alcohol use. Allergies Allergy/AdvReac Type Severity Reaction Status Date / Time No Known Allergies Allergy Unverified 10/15/21 00:14 Home Medications Medication Instructions Recorded Confirmed Type ascorbic acid (vitamin C) 500 mg 500 mg PO DAILY 10/14/21 10/15/21 History tablet (Vitamin C) atorvastatin 20 mg tablet 10 mg PO DAILY 10/14/21 10/14/21 History biotin 1 mg tablet 1 mg PO DAILY 10/14/21 10/15/21 History diclofenac sodium 1 % topical gel 0 g TOPICAL TID PRN 10/14/21 10/14/21 History furosemide 20 mg tablet (Lasix) 20 mg PO DAILY PRN 10/14/21 10/14/21 History gabapentin 100 mg capsule 100 mg PO QAM 10/14/21 10/15/21 History gabapentin 100 mg tablet 200 mg PO HS 10/14/21 10/15/21 History insulin aspart U-100 100 unit/mL 5 unit SUBCUT AC 10/14/21 10/15/21 History (3 mL) subcutaneous pen (Novolog Flexpen U-100 Insulin aspart) insulin glargine 100 unit/mL (3 20 unit SUBCUT QPM 10/14/21 10/15/21 History mL) subcutaneous pen (Lantus Solostar U-100 Insulin) lidocaine 5 % topical patch 1 patch TOPICAL DAILY 10/14/21 10/15/21 History losartan 25 mg tablet 25 mg PO BID 10/14/21 10/15/21 History lutein 6 mg tablet 0 mg PO DAILY 10/14/21 10/15/21 History methyl salicylate-menthol topical 1 ea TOPICAL DAILY 10/14/21 10/15/21 History ointment mometasone 200 mcg/actuation HFA 2 puff INHALATION DAILY 10/14/21 10/15/21 History aerosol inhaler multivitamin 1 tab PO DAILY 10/14/21 10/15/21 History omega-3 fatty acids 1,000 mg PO DAILY 10/14/21 10/15/21 History quetiapine 25 mg tablet 25 mg PO HS 10/14/21 10/15/21 History aspirin 81 mg capsule 81 mg PO DAILY #30 cap 10/15/21 Rx Patient History Medical History (Updated 10/15/21 @ 10:09 by Sonja Collins PA-C) CAD (coronary artery disease), [place] coronary artery COPD (chronic obstructive pulmonary disease) Diabetes High blood pressure History of recent pneumonia Hyperlipidemia LDL goal <70 Insomnia Lower extremity edema Surgical History Hx of CABG Social History Smoking Status: Never smoker Hx Alcohol Use: No Hx Substance Use: No Preferred Language: Malagasy Communication Ability: Effective Supply Aide Required: No Beliefs That Will Affect Care: None Current Living Situation: Family Feels Safe at Home: Yes Assistive Devices: None Review of Systems Review of Systems: All systems reviewed & are unremarkable except as noted in Subjective Physical Exam Physical Exam: Constitutional: Alert, oriented, in no acute distress HEENT: Head is atraumatic and normocephalic. EOMs intact. Sclera non-icteric. Face is symmetric. No perioral cyanosis. Mucous membranes moist Neck: No appreciable JVD Pulmonary: Normal respiratory effort, prolonged expiratory phase with scattered wheezing Cardiac: Regular rate and rhythm, normal S1 and S2, no gallops, no rubs, no murmurs Extremities: No significant lower extremity edema. No clubbing or cyanosis. Pulses 2+ and symmetric Abdomen: Normal bowel sounds, soft, non-tender, no abdominal masses palpated Skin: Normal skin color, turgor, and pigmentation. No rash or skin lesions Neurological: Oriented to person, place, and time Results & Data ([facility]) Vital Signs (Past 12 Hours) Vital Signs Temp Pulse Pulse Resp BP BP Pulse Ox 10/15/21 07:51 73 18 97 10/15/21 07:38 79 20 186/67 H 97 10/15/21 05:21 97.9 F 73 18 175/62 H 96 10/15/21 04:50 97.9 F 56 L 18 182/56 H 99 10/15/21 04:39 197/82 H 10/15/21 04:00 58 L 20 96 10/15/21 03:53 62 21 188/64 H 96 10/15/21 03:30 62 23 97 10/15/21 03:00 61 22 96 10/15/21 02:32 67 21 209/80 H 90 10/15/21 02:00 58 L 19 197/77 H 96 10/15/21 01:52 63 23 198/78 H 97 10/15/21 01:30 62 94 10/15/21 00:30 58 L 18 95 10/15/21 00:00 56 L 16 188/65 H 94 10/14/21 23:30 53 L 21 96 10/14/21 23:02 81 15 176/89 H 10/14/21 23:00 53 L 20 96 10/14/21 22:30 56 L 22 95 10/14/21 22:00 53 L 12 151/75 H 96 10/14/21 21:40 70 17 186/91 H 96 10/14/21 21:32 56 L 12 96 Laboratory Results Laboratory Results WBC 8.50 K/uL (4.8-10.8) 10/14/21 22:37 RBC 3.98 M/uL (4.7-6.1) L 10/14/21 22:37 Hgb 11.3 g/dL (14.0-18.0) L 10/14/21 22:37 Hct 34.1 % (42-52) L 10/14/21 22: MCV 85.7 fL (80-100) 10/14/21 22: MCH 28.4 pg (25-34) 10/14/21 22: MCHC 33.1 g/dL (32-36) 10/14/21: RDW Std Deviation 46.7 fL (36.4-46.3) H 10/14/21 22: RDW Coeff of Greer 14.9 % (11.5-14.5) H 10/14/21: Plt Count 167 K/uL (130-400) 10/14/21: MPV 12.0 fL (7.4-10.4) H 10/14/21 22: Immature Gran % (Auto) 0.2 % 10/14/21: Neut % (Auto) 73.7 % 10/14/21: Lymph % (Auto) 15.5 % 10/14/21 22:37 Lipscomb % (Auto) 8.6 % 10/14/21 22: Eos % (Auto) 1.6 % 10/14/21: Baso % (Auto) 0.4 % 10/14/21: Neut # (Auto) 6.26 K/uL (1.4-6.5) 10/14/21:37 Lymph # (Auto) 1.32 K/uL (1.2-3.4) 10/14/21:37 Lipscomb # (Auto) 0.73 K/uL (0.11-0.59) H 10/14/21 22:37 Eos # (Auto) 0.14 K/uL (0-0.5) 10/14/21 22:37 Baso # (Auto) 0.03 K/uL (0-0.2) 04/13/22 22:37 Immature Gran # (Auto) 0.02 K/uL (0.00-0.02) 10/14/21 22:37 Sodium 139 mmol/L (136-145) 10/14/21 22:37 Potassium 3.9 mmol/L (3.5-5.1) 10/14/21 22:37 Chloride 105 mmol/L (98-107) 10/14/21 22:37 Carbon Dioxide 25 mmol/L (21-32) 10/14/21 22:37 Anion Gap 9 (3-11) 10/14/21 22:37 BUN 28 mg/dl (6-23) H 10/14/21 22:37 Creatinine 1.14 mg/dl (0.6-1.4) 10/14/21 22:37 Est Cr Clr Drug Dosing 54.3 ml/min 10/14/21 22:37 Est GFR ( Amer) 66.6 ml/min 10/14/21 22:37 Est GFR (Non-Af Amer) 57.5 ml/min 10/14/21 22:37 BUN/Creatinine Ratio 24.6 (10-20) H 10/14/21 22:37 Glucose 78 mg/dl (70-99(Fasting)) 10/14/21 22:37 POC Glucose 140 mg/dl (70-99) H 10/15/21 07:05 Calcium 8.9 mg/dl (8.5-10.1) 10/14/21 22:37 Magnesium 2.2 mg/dl (1.7-2.4) 10/14/21 22:37 Total Bilirubin 0.7 mg/dl (0.2-1.0) 10/14/21 22:37 AST 15 U/L (13-39) 10/14/21 22:37 ALT 9 U/L (7-52) 10/14/21 22:37 Alkaline Phosphatase 71 U/L (34-104) 10/14/21 22:37 Troponin I High Sens 40.0 pg/ml (0-20) H 10/15/21 00:31 Total Protein 6.9 gm/dl (6.0-8.3) 10/14/21 22:37 Albumin 3.9 gm/dl (3.4-5.0) 10/14/21 22:37 Globulin 3.0 gm/dl (2.5-4.0) 10/14/21 22:37 Albumin/Globulin Ratio 1.3 (0.9-2) 10/14/21 22:37 Lipase 50 U/L (11-82) 10/14/21 22:37 TSH 1.822 uIu/ml (0.300-4.500) 10/14/21 22:37 SARS-CoV-2, RNA, NAAT NEGATIVE (NEGATIVE) 10/15/21 Unknown Diagnostic Findings Chest CTA 10/14/21 21:52 1. Cardiomegaly with mild pulmonary edema and small pleural effusions. 2. No pulmonary emboli. 3. Mild asymmetric patchy opacities of the basal right lower lobe are suspicious for an infectious or inflammatory pneumonitis. 4. 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 5. 4 mm low suspicion subpleural solid nodule of the right middle lobe. ECGs and telemetry reviewed. He appears to have a prolonged first degree AV block with a Wenckebach vs an accelerated junctional rhythm. Rate has been in the 50s-70s. PG Care Time/CCT Total # of Minutes Spent Total Time Spent with Patient: Total time spent is greater than 50% in coordination of care (as documented) at patient's floor/unit and/or counseling patient: Coding Level of Care Code 09666 Initial Inpt Care Lvl 3 Diagnoses CAD (coronary artery disease), [place] coronary artery I25.10 Hypertension I10 Hypertension type: unspecified Hyperlipidemia LDL goal <70 E78.5 Abnormal ECG R94.31 (1) Hypertension Hypertension type: unspecified Qualified Code(s): I10 - Essential (primary) hypertension
--- NOTE | 2021-10-15 13:05 | Hospitalist Progress Note ---
Date of Service October 15, 2021 Assessment & Plan (1) Elevated troponin: Plan: Unlikely due to ACS Continue to trend troponin Abnormal EKG at baseline Continue losartan 25 mg p.o. twice daily Heart rate is 58-low 60s, therefore would not tolerate beta-mona Hydralazine 10 mg IV every 4 hours as needed systolic blood pressure greater than 160 Appreciate cardiology recs (2) CAD (coronary artery disease), [place] coronary artery: Plan: See above (3) Hypertension: Plan: Poorly controlled Continue home meds receck BP (4) History of recent pneumonia: Plan: Completed [facility] (5) Pleural effusion, bilateral: Plan: Bilateral pleural effusions/lower extremity edema- He has history of intermittently taking Lasix 20 mg daily as needed We will place him on 40 mg Lasix orally daily and follow examination (6) Lower extremity edema: Plan: See above (7) Diabetes: Plan: Reduce Lantus from 20 to 10 units subcu in the evening. Hold 5 units subcu of NovoLog AC Place on Accu-Cheks before meals and at bedtime with NovoLog coverage per scale Check hemoglobin A1c (8) Pulmonary nodules/lesions, multiple: Plan: Follow-up in outpatient setting per protocol (9) COPD (chronic obstructive pulmonary disease): Plan: COPD/acute dyspnea- Patient reports having used nebulizers while in [place] At least part of this is likely post inflammatory with due to recent pneumonia Duonebs every 4 hours while awake and every 2 hours when necessary. (10) Acute dyspnea: Plan: See above (11) Hyperlipidemia LDL goal <70: Plan: Continue atorvastatin 10 mg daily Check a fasting lipid panel (12) Insomnia: Plan: Continue Seroquel 25 mg at bedtime Plan: discharge in the next 24 hrs Admission and Anticipated Discharge Date Admission Date: October 15, 2021 Subjective patient seen and examined this morning, says shortness of breath is better Review of Systems Review of Systems: All systems reviewed are negative, apart from the ones contained in the history. Physical Exam Physical Exam: The patient is awake, alert and oriented 3, well developed and well nourished, normocephalic and atraumatic, lying in bed and in no acute dis tress. HEENT--PERRL, EOMI, mucous membranes and oropharynx mildly dry Neck--supple. No JVD. No bruits. Thyroid normal, trachea midline, no adenopathy. Heart--normal S1 and S2. No murmurs, rubs or gallops. Lungs--clear bilaterally, no respiratory distress, no accessory muscle use. Abdomen--normal bowel sounds and soft. Mild epigastric and left sided abdominal pain Extremities--no cyanosis or clubbing. No edema. Dermatologic--normal skin turgor, normal color, no abnormal lymph nodes, no rash. Neurologic--cranial nerves II through XII grossly intact. Rheumatologic--normal range of motion. Psychiatric--normal affect. Results & Data Results & Data ([facility]) Vital Signs (Past 12 Hours) Vital Signs Temp Pulse Pulse Resp BP BP Pulse Ox 10/15/21 11:58 98.1 F 53 L 19 153/61 H 95 10/15/21 10:57 73 22 121/47 L 99 10/15/21 10:49 80 18 96 10/15/21 07:51 73 18 97 10/15/21 07:38 79 20 186/67 H 97 10/15/21 05:21 97.9 F 73 18 175/62 H 96 10/15/21 04:50 97.9 F 56 L 18 182/56 H 99 10/15/21 04:39 197/82 H 10/15/21 04:00 58 L 20 96 10/15/21 03:53 62 21 188/64 H 96 10/15/21 03:30 62 23 97 10/15/21 03:00 61 22 96 10/15/21 02:32 67 21 209/80 H 90 10/15/21 02:00 58 L 19 197/77 H 96 10/15/21 01:52 63 23 198/78 H 97 10/15/21 01:30 62 94 PG Care Time/CCT Total # of Minutes Spent Total Time Spent with Patient: Total time spent is greater than 50% in coordination of care (as documented) at patient's floor/unit and/or counseling patient: Coding Level of Care Code 43482 Subseq Obs Care Lvl 2 Diagnoses Elevated troponin R77.8 CAD (coronary artery disease), [place] coronary artery I25.10 Hypertension I10 Hypertension type: unspecified History of recent pneumonia Z87.01 Pleural effusion, bilateral J90 Lower extremity edema R60.0 Diabetes E11.9 Pulmonary nodules/lesions, multiple R91.8 COPD (chronic obstructive pulmonary disease) J44.9 Acute dyspnea R06.00 Hyperlipidemia LDL goal <70 E78.5 Insomnia G47.00 Time Spent (min) 35 (1) Hypertension Hypertension type: unspecified Qualified Code(s): I10 - Essential (primary) hypertension
--- NOTE | 2021-10-15 14:12 | XCELERA ---
[id number]
--- NOTE | 2021-10-15 16:01 | Discharge Summary ---
Date of Service October 15, 2021 Admission HPI Per Admitting Provider The patient is a an 85-year-old male with a past medical history including hypertension, CAD, status post CABG x3, anxiety, and diabetes mellitus. He had previously been from [place], and moved to the area 1 month ago to be with his nephew locally. He was treated for a recent pneumonia at [facility], and was told at his follow-up week ago that his chest x-ray was clear, however, he continues to have an intermittent productive cough. He reports hearing that his friend is a dive today, and he reports his blood pressure became elevated, and with the presence of shortness of breath associated with the cough, he presents to the ED for assessment. Significant laboratories: Troponin 36.8 the increased 40.0, hemoglobin 11.3, hematocrit 34.1. CT angiography of chest is negative for PE, but does show mild bilateral pleural effusions, lymphadenopathy and pulmonary nodules. Principal Diagnosis Elevated trop Discharge Exam The patient is awake, alert and oriented 3, well developed and well nourished, normocephalic and atraumatic, lying in bed and in no acute distress. HEENT--PERRL, EOMI, mucous membranes and oropharynx mildly dry Neck--supple. No JVD. No bruits. Thyroid normal, trachea midline, no adenopathy. Heart--normal S1 and S2. No murmurs, rubs or gallops. Lungs--clear bilaterally, no respiratory distress, no accessory muscle use. Abdomen--normal bowel sounds and soft. Mild epigastric and left sided abdominal pain Extremities--no cyanosis or clubbing. No edema. Dermatologic--normal skin turgor, normal color, no abnormal lymph nodes, no rash. Neurologic--cranial nerves II through XII grossly intact. Rheumatologic--normal range of motion. Psychiatric--normal affect. Discharge Data Allergies Allergy/AdvReac Type Severity Reaction Status Date / Time No Known Allergies Allergy Unverified 10/15/21 00:14 Consultations 10/15/21 02:19 ED Decision to Admit Stat 10/15/21 05:15 Consult Cardiology Routine Ordered Studies 10/14/21 21:52 CT angio chest PE protocol Urgent Hospital Course (1) Elevated troponin: Unlikely due to ACS Continue to trend troponin Abnormal EKG at baseline Continue losartan 25 mg p.o. twice daily Heart rate is 58-low 60s, therefore would not tolerate beta-mona Hydralazine 10 mg IV every 4 hours as needed systolic blood pressure greater than 160 Appreciate cardiology recs (2) CAD (coronary artery disease), [place] coronary artery: See above (3) Hypertension: Poorly controlled Continue home meds receck BP (4) History of recent pneumonia: Completed antibiotic [facility] (5) Pleural effusion, bilateral: Bilateral pleural effusions/lower extremity edema- He has history of intermittently taking Lasix 20 mg daily as needed We will place him on 40 mg Lasix orally daily and follow examination (6) Lower extremity edema: See above (7) Diabetes: Reduce Lantus from 20 to 10 units subcu in the evening. Hold 5 units subcu of NovoLog AC Place on Accu-Cheks before meals and at bedtime with NovoLog coverage per scale Check hemoglobin A1c (8) Pulmonary nodules/lesions, multiple: Follow-up in outpatient setting per protocol (9) COPD (chronic obstructive pulmonary disease): COPD/acute dyspnea- Patient reports having used nebulizers while in [place] At least part of this is likely post inflammatory with due to recent pneumonia Duonebs every 4 hours while awake and every 2 hours when necessary. (10) Acute dyspnea: See above (11) Hyperlipidemia LDL goal <70: Continue atorvastatin 10 mg daily Check a fasting lipid panel (12) Insomnia: Continue Seroquel 25 mg at bedtime discharge in the next 24 hrs Total Time Total Time Spent Total Time Spent (In Minutes): 35 Discharge Plan Discharge Items Patient Disposition: Home - Self-Care Reason For Visit: ELEVATED TROPONIN Discharge Diagnosis: chest pain Condition on Discharge: Good Activity: Resume your previous activity Non-emergency contact: Primary Care Provider and Hooker Inspector Call non-emergency contact if: you have any medication questions and your symptoms worsen Follow-up/Referrals: PCP,NO [Primary Care Provider] - Diet: Heart Healthy Addtl Attending Provider Instructions: please make appointment tto follow up with cardiology Pending Studies at Discharge: No Stand-Alone Forms: My [employer], Smoking Cessation Medications and DC Order Prescriptions: New aspirin 81 mg capsule 81 mg PO DAILY Qty: 30 RF: 0 Continued multivitamin Tablet 1 tab PO DAILY RF: 0 quetiapine 25 mg Tablet 25 mg PO HS RF: 0 atorvastatin 20 mg Tablet 10 mg PO DAILY RF: 0 ascorbic acid (vitamin C) [Vitamin C] 500 mg Tablet 500 mg PO DAILY RF: 0 lidocaine 5 % Adhesive Patch,Medicated 1 patch TOPICAL DAILY RF: 0 losartan 25 mg Tablet 25 mg PO BID RF: 0 furosemide [Lasix] 20 mg Tablet 20 mg PO DAILY PRN (Reason: Edema) RF: 0 gabapentin 100 mg Capsule 100 mg PO QAM RF: 0 methyl salicylate-menthol Ointment 1 ea TOPICAL DAILY RF: 0 insulin aspart U-100 [Novolog Flexpen U-100 Insulin] 100 unit/mL (3 mL) Insulin Pen 5 unit SUBCUT AC RF: 0 omega-3 fatty acids Capsule 1,000 mg PO DAILY RF: 0 gabapentin 100 mg Tablet 200 mg PO HS RF: 0 biotin 1 mg Tablet 1 mg PO DAILY RF: 0 Lantus Solostar U-100 Insulin 100 unit/mL (3 mL) Insulin Pen 20 unit SUBCUT QPM RF: 0 diclofenac sodium 1 % Gel 0 g TOPICAL TID PRN (Reason: Pain) RF: 0 lutein 6 mg Tablet 0 mg PO DAILY RF: 0 mometasone 200 mcg/actuation Hfa Aerosol Inhaler 2 puff INHALATION DAILY RF: 0 Discharge Orders: Discharge Order (Routine); Ordered 10/15/21 Ordered By: Rudy Montes De Oca Admission Data Admit Date/Time: 10/15/21 02:49 Attending Provider: Rudy Montes De Oca Admit Provider: Moe Warner Primary Care Provider: PCP,NO Other Providers: Axel Hanson ; Moe Warner Coding Level of Care Code D/C DAY MANAGEMENT >30 MINS Diagnoses Elevated troponin R77.8 CAD (coronary artery disease), [place] coronary artery I25.10 Hypertension I10 Hypertension type: unspecified History of recent pneumonia Z87.01 Pleural effusion, bilateral J90 Lower extremity edema R60.0 Diabetes E11.9 Pulmonary nodules/lesions, multiple R91.8 COPD (chronic obstructive pulmonary disease) J44.9 Acute dyspnea R06.00 Hyperlipidemia LDL goal <70 E78.5 Insomnia G47.00 Time Spent (min) 35
[2021-10-15] MEDS ORDERED: INSULIN GLARGINE SOLOSTAR 100 UNITS/ML 3 ML PEN SQ SCH (21:00)
[2021-10-15] MEDS ORDERED: QUEtiapine FUMARATE 25 MG TABLET PO SCH (21:00)
--- NOTE | 2021-10-16 06:14 | Electrocardiogram Report ---
Test Reason : Blood Pressure : / mmHG Vent. Rate : 066 BPM Atrial Rate : 071 BPM P-R Int : 000 ms QRS Dur : 088 ms QT Int : 388 ms P-R-T Axes : 000 050 002 degrees QTc Int : 406 ms Possible Junctional rhythm vs mobitz 1 Septal infarct , age undetermined Abnormal ECG No previous ECGs available Confirmed by Axel Hanson ([id number]) on 10/16/2021 6:13:29 AM Referred By: REFERRED SELF Confirmed By:Axel Hanson
--- NOTE | 2021-10-16 06:33 | Electrocardiogram Report ---
Test Reason : Blood Pressure : / mmHG Vent. Rate : 074 BPM Atrial Rate : 083 BPM P-R Int : 000 ms QRS Dur : 100 ms QT Int : 438 ms P-R-T Axes : 000 064 -03 degrees QTc Int : 486 ms Accelerated Junctional rhythm Incomplete right bundle branch block Septal infarct (cited on or before 14-OCT-2021) Nonspecific ST abnormality Abnormal ECG When compared with ECG of 14-OCT-2021 21:37, QT has lengthened Confirmed by Axel Hanson ([id number]) on 10/16/2021 6:33:03 AM Referred By: REFERRED SELF Confirmed By:Axel Hanson
== END 2021-10-15 17:17 | disposition home or self-care (01) ==
LOC: ED 21:06 → 2S 21:06 → SUATTDRO 10-15 02:49 → 2S 10-15 04:39